=== PATIENT | female | born 1980 ===

== ENCOUNTER 2017-04-29 21:42 | Emergency (ER) | payer OTHER ==
[2017-04-29 21:42] VITALS: BMI 25.0
[2017-04-29 22:35] VITALS: RESP 16
[2017-04-29 23:53] LABS: BASO # 0.1 K/uL (0.0-0.2); EOS # 0.2 K/uL (0.0-0.7); EOS % 3.1 % (0.0-4.0); HEMATOCRIT 29.2 % (34.0-47.0); LYMPH # 2.4 K/uL (1.0-4.3); LYMPH % 30.7 % (20.0-40.0); MEAN CELL VOLUME 63.6 fl (81.0-99.0); MEAN CORPUSCULAR HEMOGLOBIN 19.2 pg (27.0-31.0); MEAN CORPUSCULAR HGB CONC 30.2 g/dL (33.0-37.0); MEAN PLATELET VOLUME 8.1 fl (7.2-11.7); MONO # 0.7 K/uL (0.0-0.8); MONO % 8.3 % (0.0-10.0); NEUT # 4.5 K/uL (1.8-7.0); NEUT % 56.9 % (50.0-75.0); RED CELL DISTRIBUTION WIDTH 20.3 % (11.5-14.5); WHITE BLOOD COUNT 7.9 K/uL (4.8-10.8)
--- NOTE | 2017-04-30 00:08 | ED PDOC ---
HPI: General Adult Time Seen by Provider: 04/29/17 22:46 Chief Complaint (Nursing): Abdominal Pain History Per: Patient Additional Complaint(s): Pt. states yesterday she went to a clinic as she had some vaginal spotting and was found to be . Reports also having b/l lower back pain. Today spotting continued prompting ED visit. Denies hx of ectopic , pelvic pain, dysuria, hematuria, weakness. Past Medical History Reviewed: Historical Data, Nursing Documentation, Vital Signs Vital Signs: Last Vital Signs Temp 98.4 F 04/29/17 22:33 Pulse 82 04/29/17 22:33 Resp 16 04/29/17 22:33 BP 136/75 04/29/17 22:33 Pulse Ox 100 04/30/17 00:08 - Medical History PMH: Anemia - Family History Family History: States: No Known Family Hx - Home Medications Home Medications: Ambulatory Orders Medication Instructions Recorded No Known Home Med 12/23/16 - Allergies Allergies/Adverse Reactions: Allergies Allergy/AdvReac Type Severity Reaction Status Date / Time No Known Allergies Allergy Verified 04/29/16 08:37 Review of Systems ROS Statement: Except As Marked, All Systems Reviewed And Found Negative Musculoskeletal: Positive for: Back Pain Physical Exam - Reviewed Nursing Documentation Reviewed: Yes Vital Signs Reviewed: Yes - Physical Exam Appears: Positive for: Well, Non-toxic, No Acute Distress Head Exam: Positive for: ATRAUMATIC, NORMAL INSPECTION, NORMOCEPHALIC Skin: Positive for: Normal Color, Warm. Negative for: Rash Eye Exam: Positive for: EOMI, Normal appearance, PERRL ENT: Positive for: Normal ENT Inspection Neck: Positive for: Normal, Painless ROM Cardiovascular/Chest: Positive for: Regular Rate, Rhythm Respiratory: Positive for: CNT, Normal Breath Sounds Gastrointestinal/Abdominal: Positive for: Normal Exam, Soft. Negative for: Tenderness Back: Positive for: Normal Inspection Extremity: Positive for: Normal ROM Neurologic/Psych: Positive for: Alert, Oriented - Laboratory Results Result Diagrams: 04/29/17 23:49 04/29/17 23:49 - ECG O2 Sat by Pulse Oximetry: 100 - Progress ED Course And Treament: Labs ordered. US ordered. Previous lab results on 10/11/16 pt's HgB was 7.8. Upon further questioning pt. reports a hx of anemia but no previous transfusions. US: No acute findings. Please note the results of a test are pending at this time. If the patient has a positive test then differential diagnosis would include early IUP, AB, and ectopic and short term serial beta-hCG levels would be recommended along with follow-up ultrasound. Informed of results and instructed to return to ED in 72 hours for repeat US/ BHCG. Joyce chief crew scheduler was used. Disposition - Clinical Impression Clinical Impression: Threatened - Patient ED Disposition Is Patient to be Admitted: No - Disposition Disposition: Routine/Home Disposition Time: 02:47 Condition: STABLE Additional Instructions: Return to ED in 72 hours for repeat testing. Instructions: Threatened Miscarriage (ED) Print Language: MONGOLIAN
--- NOTE | 2017-04-30 00:55 | US ---
EXAM: US , Transvaginal CLINICAL HISTORY: 36 years old, female; Signs and symptoms; Lmp or gestational age (in weeks): 03/02/17; Antepartum complications; Hemorrhage; Additional info: Spotting, back pain TECHNIQUE: Real-time transvaginal ultrasound of the maternal pelvis with image documentation. EXAM DATE/TIME: 04/29/2017 11:23 PM COMPARISON: No relevant prior studies available. FINDINGS: The uterus measures 8 x 5 x 6 cm and is normal. The cervix measures 3.4 cm. The endometrium is heterogeneous and measures 15 mm. No uterine masses. No intrauterine gestational sac. The right ovary is normal. The left ovary is normal. Color flow and doppler vascular waveforms were demonstrated to both ovaries. No adnexal masses. There is no significant free fluid. IMPRESSION: No acute findings. Please note the results of a test are pending at this time. If the patient has a positive test then differential diagnosis would include early IUP, AB, and ectopic and short term serial beta-hCG levels would be recommended along with follow-up ultrasound.
[2017-04-30 01:28] LABS: ALB/GLOB RATIO 1.3 (1.0-2.1); ALKALINE PHOSPHATASE 59 U/L (38-126); ALT/SGPT 21 U/L (9-52); AST/SGOT 37 U/L (14-36); BILIRUBIN,TOTAL 0.1 mg/dl (0.2-1.3); BLOOD UREA NITROGEN 10 mg/dl (7-17); CALCIUM 9.3 mg/dL (8.4-10.2); CARBON DIOXIDE 24 mmol/L (22-30); CHLORIDE 103 mmol/L (98-107); GFR AFRICAN-AMERICAN > 60; GLUCOSE,RANDOM 91 mg/dL (65-105); POTASSIUM 3.8 MMOL/L (3.6-5.0); SODIUM 138 mmol/l (132-148); TOTAL PROTEIN 7.6 G/DL (6.3-8.2)
[2017-04-30 02:16] LABS: URINE COLOR YELLOW (YELLOW)
[2017-04-30 02:17] LABS: URINE BILIRUBIN NEGATIVE (NEGATIVE); URINE GLUCOSE (UA) NEGATIVE (Normal)
[2017-04-30 02:18] LABS: PH,URINE 6.5 (5.0-8.0); URINE BLOOD LARGE (NEGATIVE); URINE KETONE NEGATIVE (NEGATIVE)
[2017-04-30 02:19] LABS: URINE PROTEIN NEGATIVE (NEGATIVE); URINE UROBILINOGEN 0.2 mg/dL (0.2-1.0)
[2017-04-30 02:20] LABS: RBC URINE 580 /hpf (0-3); URINE BACTERIA SMALL (<OCC); WBC URINE 2 /hpf (0-5)
[2017-04-30 02:56] VITALS: BP 125/74; PULSE 77; TEMP 98; O2SAT 99
[2017-04-30 03:22] LABS: URINE LEUKOCYTE ESTERASE NEGATIVE Leu/uL (Negative)
== END 2017-04-30 02:50 | disposition home or self-care (01) ==
LOC: H.ER 21:42
DX: O20.0 Threatened abortion (principal); M54.9 Dorsalgia, unspecified; Z3A.01 Less than 8 weeks gestation of pregnancy

== ENCOUNTER 2017-05-02 09:19 | Emergency (ER) | payer OTHER ==
[2017-05-02 09:25] VITALS: BP 106/64; PULSE 82; TEMP 98.4; O2SAT 99; BMI 27.6
[2017-05-02 09:44] VITALS: RESP 18
--- NOTE | 2017-05-02 10:40 | ED PDOC ---
HPI: General Adult Time Seen by Provider: 05/02/17 09:30 Chief Complaint (Nursing): Abnormal Labs Chief Complaint (Provider): ER follow up History Per: Patient History/Exam Limitations: no limitations Additional Complaint(s): 36yo female returns to the ED for repeat beta HCG and ultrasounds after being seen here 3 days ago and discharged with diagnosis threatened . Patient states there are no new complaints. Past Medical History Reviewed: Historical Data, Nursing Documentation, Vital Signs Vital Signs: Last Vital Signs Temp 98.4 F 05/02/17 09:41 Pulse 82 05/02/17 09:41 Resp 18 05/02/17 09:41 BP 106/64 05/02/17 09:41 Pulse Ox 99 05/02/17 13:11 - Medical History PMH: Anemia - Surgical History Surgical History: No Surg Hx - Family History Family History: States: Unknown Family Hx - Social History Current smoker - smoking cessation education provided: No Alcohol: None Drugs: Denies - Home Medications Home Medications: Ambulatory Orders Medication Instructions Recorded No Known Home Med 12/23/16 - Allergies Allergies/Adverse Reactions: Allergies Allergy/AdvReac Type Severity Reaction Status Date / Time No Known Allergies Allergy Verified 05/02/17 09:41 Review of Systems Genitourinary Female: Positive for: Vaginal Bleeding Physical Exam - Reviewed Nursing Documentation Reviewed: Yes Vital Signs Reviewed: Yes - Physical Exam Appears: Positive for: Well, Non-toxic, No Acute Distress Head Exam: Positive for: ATRAUMATIC, NORMAL INSPECTION, NORMOCEPHALIC Skin: Positive for: Warm, Dry Cardiovascular/Chest: Positive for: Regular Rate, Rhythm Respiratory: Positive for: Normal Breath Sounds. Negative for: Rales, Rhonchi, Wheezing Gastrointestinal/Abdominal: Positive for: Soft. Negative for: Tenderness Extremity: Positive for: Normal ROM Neurologic/Psych: Positive for: Alert, Oriented - ECG O2 Sat by Pulse Oximetry: 99 (RA) Pulse Ox Interpretation: Normal Medical Decision Making Medical Decision Making: Repeat US and beta-HCG ordered to rule out early IUP, AB, and ectopic . Patient is O positive. 1230 Beta HCG reviewed. US reviewed. US Transvaginal: IMPRESSION: No significant interval change compared to the prior study. No compelling evidence for products of gestation. Smaller regular cyst-like focus in the endometrial canal unchanged over the last 60 hours. 1300 discharge results explained to patient. patient is feeling better. stable for discharge. return if symptoms worsen. follow up with PMD / OB in 2 days Disposition - Clinical Impression Clinical Impression: Threatened - Patient ED Disposition Is Patient to be Admitted: No Counseled Patient/Family Regarding: Studies Performed, Diagnosis, Need For Followup - Disposition Referrals: [facility] [Outside] [facility] [Outside] Disposition: Routine/Home Disposition Time: 11:00 Condition: IMPROVED Additional Instructions: follow up with your PRODUCT MARKETING CONSULTANT in 1-2 days or in the ER if you cant follow up with your oil treater return to the ED with any worsening or concerning symptoms. Instructions: Threatened Miscarriage (ED) Print Language: URDU Additional Comments - Additional Comments Additional Comments: Scribe Attestation: Documented by Tommie Simms acting as a scribe for Nuha Do MD. Provider Scribe Attestation: All medical record entries made by the Scribe were at my direction and personally dictated by me. I have reviewed the chart and agree that the record accurately reflects my personal performance of the history, physical exam, medical decision making, and the department course for this patient. I have also personally directed, reviewed, and agree with the discharge instructions and disposition.
--- NOTE | 2017-05-02 12:57 | US ---
HISTORY: Follow-up COMPARISON: 04/30/2017. TECHNIQUE: Transvaginal only. Real -time technique with 2D, duplex and color Doppler FINDINGS: UTERUS: Measures 5.5 x 6.5 x 9.9 cm. Normal in size and appearance. Location of fibroid(s) and size: Posterior measuring 1 x 0.6 cm. ENDOMETRIUM: Tiny saclike structure which is irregular within the endometrial canal. This is unchanged compared to the prior pelvic ultrasound 05/27/2017. No definitive gestational sac or products of gestation otherwise identified. CERVIX: No cervical abnormality identified. RIGHT OVARY: Measures 1.8 x 2.4 cm. No solid mass. Normal flow. LEFT OVARY: Measures 1.9 x 4.0 cm. No solid mass. Normal flow. FREE FLUID: No significant free fluid noted. OTHER FINDINGS: None. IMPRESSION: No significant interval change compared to the prior study. No compelling evidence for products of gestation. Smaller regular cyst-like focus in the endometrial canal unchanged over the last 60 hours.
== END 2017-05-02 14:27 | disposition home or self-care (01) ==
LOC: H.ER 09:19
DX: O20.0 Threatened abortion (principal)

== ENCOUNTER 2017-09-22 09:02 | Emergency (ER) | payer OTHER ==
[2017-09-22 09:09] VITALS: BP 116/67; PULSE 84; O2SAT 100
[2017-09-22 09:10] VITALS: BMI 25.4
[2017-09-22 09:24] VITALS: RESP 17; TEMP 98
--- NOTE | 2017-09-22 10:04 | ED PDOC ---
HPI: General Adult Time Seen by Provider: 09/22/17 09:15 Chief Complaint (Nursing): ENT Problem Chief Complaint (Provider): Neck pain History Per: Patient History/Exam Limitations: no limitations Onset/Duration Of Symptoms: Days (x2) Current Symptoms Are (Timing): Still Present Additional History Per: Patient Additional Complaint(s): Camryn is a 37 y/o female who presents to the ED complaining of right neck pain for 2 days. Reports difficulty moving her right side secondary to pain. She initially had a posterior headache prior to onset of neck pain, but no headache currently. Denies any associated dizziness, numbness, weakness, nausea , vomiting, diarrhea, fever, or cough. Patient also reports a sore throat but is able to swallow. No injury or trauma to the area, she woke up with the pain. Taking Advil without relief. Woke up with the pain. PMD: Provider TBD Past Medical History Reviewed: Historical Data, Nursing Documentation, Vital Signs Vital Signs: Last Vital Signs Temp 98.0 F 09/22/17 09:21 Pulse 84 09/22/17 09:21 Resp 17 09/22/17 09:21 BP 116/67 09/22/17 09:21 Pulse Ox 100 09/22/17 10:05 - Medical History PMH: No Chronic Diseases - Surgical History Surgical History: No Surg Hx - Family History Family History: States: Unknown Family Hx - Social History Current smoker - smoking cessation education provided: No Alcohol: None Drugs: Denies - Home Medications Home Medications: Ambulatory Orders Medication Instructions Recorded Diazepam [Valium] 2 mg PO BID PRN #6 tab 09/22/17 Ibuprofen [Motrin] 600 mg PO TID 7 Days tab 09/22/17 - Allergies Allergies/Adverse Reactions: Allergies Allergy/AdvReac Type Severity Reaction Status Date / Time No Known Allergies Allergy Verified 05/02/17 09:41 Review of Systems ROS Statement: Except As Marked, All Systems Reviewed And Found Negative Constitutional: Negative for: Fever, Chills ENT: Positive for: Throat Pain (but no difficulty swallowing), Other (Neck pain) Cardiovascular: Negative for: Chest Pain Respiratory: Negative for: Cough, Shortness of Breath Gastrointestinal: Negative for: Nausea, Vomiting, Abdominal Pain, Diarrhea Genitourinary Female: Negative for: Dysuria, Frequency Musculoskeletal: Positive for: Neck Pain Neurological: Negative for: Weakness, Numbness, Headache, Dizziness Physical Exam - Reviewed Nursing Documentation Reviewed: Yes Vital Signs Reviewed: Yes - Physical Exam Appears: Positive for: Non-toxic, No Acute Distress Head Exam: Positive for: ATRAUMATIC, NORMOCEPHALIC Skin: Positive for: Normal Color, Warm, Dry Eye Exam: Positive for: EOMI, Normal appearance, PERRL ENT: Positive for: Normal ENT Inspection. Negative for: Pharyngeal Erythema, Tonsillar Exudate Neck: Positive for: Normal (with tenderness to right lateral neck), Supple, Trachea Midline, Pain On Movement Of Neck (to right side) Cardiovascular/Chest: Positive for: Regular Rate, Rhythm. Negative for: Murmur Respiratory: Positive for: Normal Breath Sounds. Negative for: Respiratory Distress Gastrointestinal/Abdominal: Positive for: Normal Exam, Soft. Negative for: Tenderness Back: Positive for: Normal Inspection. Negative for: L CVA Tenderness, R CVA Tenderness, Vertebral Tenderness Extremity: Positive for: Normal ROM. Negative for: Pedal Edema, Deformity Neurologic/Psych: Positive for: Alert, Oriented. Negative for: Motor/Sensory Deficits - ECG O2 Sat by Pulse Oximetry: 100 (RA) Pulse Ox Interpretation: Normal - Progress ED Course And Treament: 1127: Stable. AAOx3. Pain improved. Will rx valium and motrin. Pt. to fu with pcp. Medical Decision Making Medical Decision Making: Time: 9:45 Initial Plan: --Valium 5 mg PO --Toradol 15 mg IM --Tylenol 975 mg PO --Pending reevaluation Scribe Attestation: Documented by Rupa Nicolas, acting as a scribe for Cristopher Mcdonough MD Provider Scribe Attestation: All medical record entries made by the Scribe were at my direction and personally dictated by me. I have reviewed the chart and agree that the record accurately reflects my personal performance of the history, physical exam, medical decision making, and the department course for this patient. I have also personally directed, reviewed, and agree with the discharge instructions and disposition. Disposition - Clinical Impression Clinical Impression: Torticollis - Patient ED Disposition Is Patient to be Admitted: No Counseled Patient/Family Regarding: Diagnosis, Need For Followup, Rx Given - Disposition Referrals: [facility] [Outside] - 09/23/17 Disposition: Routine/Home Disposition Time: 11:28 Condition: STABLE Additional Instructions: Return if not better in 3 days. Prescriptions: Diazepam [Valium] 2 mg PO BID PRN #6 tab PRN Reason: Muscle Spasm Ibuprofen [Motrin] 600 mg PO TID 7 Days tab Instructions: Muscle Spasm (ED) Forms: [employer] (Occitan) Print Language: MONGOLIAN
== END 2017-09-22 11:40 | disposition home or self-care (01) ==
LOC: H.ER 09:02
DX: M43.6 Torticollis (principal)
CPT/HCPCS: 81025; 96372; 99283; J1885

== ENCOUNTER 2018-05-16 10:24 | Day surgery (SDC) | payer SELFPAY ==
[2018-05-16] MEDS ORDERED: Lactated Ringer's 500 ML IV ONE (11:14)
[2018-05-16] MEDS ORDERED: Propofol 10 mg/ml Inj (20 ML) ONE (11:50)
[2018-05-16 12:04] VITALS: TEMP 97.5
[2018-05-16 12:16] VITALS: BP 99/55; PULSE 59; RESP 12; O2SAT 99
== END 2018-05-16 12:29 | disposition home or self-care (01) ==
LOC: H.ENDO 10:24
PROVIDERS: ATTEND Internal Medicine Gastroenterology
DX: K25.7 Chronic gastric ulcer without hemorrhage or perforation (principal); K29.50 Unspecified chronic gastritis without bleeding; K21.9 Gastro-esophageal reflux disease without esophagitis; D64.9 Anemia, unspecified; Z86.19 Personal history of other infectious and parasitic diseases; Z83.3 Family history of diabetes mellitus
CPT/HCPCS: 43239; 88305; J2001; J2704; J7120